=== PATIENT | male | born 1990 | race Caucasian/White ===

== ENCOUNTER 2017-07-21 17:17 | Emergency (ER) | payer OTHER ==
[2017-07-21] MEDS ORDERED: Acetaminophen/HYDROcodone 325-5 MG Tab ONE (17:40)
--- NOTE | 2017-07-23 18:56 | CR ---
DATE OF SERVICE: 07/21/2017 CLINICAL DATA: Wrist injury. RIGHT WRIST: There is a lucency through the ulnar styloid process consistent with a nondisplaced fracture. No other acute abnormalities. [id number] [facility]
--- NOTE | 2017-07-28 00:32 | ER ---
HISTORY OF PRESENT ILLNESS: A 26-year-old male here with complaints of wrist pain involving the right wrist. He was using a power drill when the drill twisted on him, and it twisted his wrist aggressively. The patient is pointing to the dorsal aspect of the wrist when describing the area of pain. He denies any numbness or tingling involving the hand or fingers and denies any other injuries. OBJECTIVE: GENERAL APPEARANCE: The patient is awake and alert, in no obvious distress. VITAL SIGNS: Reviewed. He is normotensive and afebrile. EXTREMITIES: Examining the right wrist reveals skin is intact. Mild swelling is present over the dorsal aspect of the wrist. There is tenderness over the entire dorsal aspect of the wrist with palpation. He has about 50% flexion and extension capability. LAB AND X-RAY: X-rays were obtained. There is an ulnar styloid fracture. DIAGNOSIS: Wrist fracture. TREATMENT PLAN: A wrist brace was given to the patient. RICE therapy was discussed. He was given a few pain medications to take as needed. He needs to follow up in few days with his primary care provider for casting purposes. ADIA/MODL /[id number]
== END 2017-07-21 18:09 | disposition home or self-care (01) ==
LOC: LB.ED 17:17
DX: S52.611A Displaced fracture of right ulna styloid process, initial encounter for closed fracture (principal); X50.1XXA Overexertion from prolonged static or awkward postures, initial encounter
CPT/HCPCS: 29125; 73110; 99283; A9270